=== PATIENT | male | born 1995 | race Caucasian/White ===

== ENCOUNTER 2019-01-16 16:19 | Emergency (ER) | payer MEDICAID ==
[~2019-01-16] VITALS: Ht 172.7 cm; Wt 86.0 kg
[2019-01-16 19:03] VITALS: BP 110/77
== END 2019-01-16 19:04 | disposition home or self-care (01) ==
LOC: ER 16:19
DX: R21 Rash and other nonspecific skin eruption (principal); L30.9 Dermatitis, unspecified; F17.200 Nicotine dependence, unspecified, uncomplicated
CPT/HCPCS: 99282; 99406